=== PATIENT | female | born 1965 | race Two or more races ===

== ENCOUNTER 2023-10-10 01:44 | Inpatient (IN) | payer MEDICAID, OTHER ==
[~2023-10-10] VITALS: Ht 152.4 cm; Wt 72.6 kg
[2023-10-10 03:00] LABS: BASOPHILS % (AUTO) 0.4 % (0.0-2.0); HEMATOCRIT 35.5 % (36-46); LYMPHOCYTES # (AUTO) 1.1 K/uL (1.0-4.8); LYMPHOCYTES % (AUTO) 20.4 % (22.0-44.0); MEAN CORPUSCULAR HEMOGLOBIN 28.2 pg (26.0-34.0); MEAN CORPUSCULAR HGB CONC 33.9 G/dL (31.0-37.0); MEAN CORPUSCULAR VOLUME 83 fL (80-100); MONOCYTES # (AUTO) 0.3 K/uL (0.1-1.0); MONOCYTES % (AUTO) 5.9 % (2.0-9.0); NEUTROPHILS % (AUTO) 72.3 % (40.0-70.0); PLATELET COUNT (AUTO) 306 K/uL (150-450); RED BLOOD CELL COUNT(AUTO) 4.25 MIL/uL (4.00-5.20); RED CELL DISTRIBUTION WIDTH 13.3 % (11.5-14.5); WHITE BLOOD COUNT (AUTO) 5.6 K/uL (4.5-11.0)
[2023-10-10 03:08] LABS: ANION GAP 6 mmol/L (8-16); CALCIUM, TOTAL 9.3 mg/dL (8.8-10.5); CARBON DIOXIDE 32 mmol/L (22-29); CHLORIDE 103 mmol/L (98-107); CREATININE 0.79 mg/dL (0.60-1.30); GLOMERULAR FILTR. RATE CALC > 60 mL/min (>60); GLUCOSE,RANDOM 154 mg/dL (70-110); POTASSIUM 4.1 mmol/L (3.5-5.1); SODIUM SERUM 141 mmol/L (136-145); UREA NITROGEN, BLOOD 8 mg/dL (7-18)
[2023-10-10 03:16] LABS: ALANINE AMINOTRANSFERASE 31 U/L (12-78); ALBUMIN 3.7 g/dL (3.4-5.0); ALCOHOL, BLOOD (SERUM) < 3 mg/dL (0-10); ALKALINE PHOSPHATASE 112 U/L (46-116); ASPARTATE AMINOTRANSFERASE 22 U/L (15-37); BILIRUBIN,TOTAL 0.4 mg/dL (0.1-1.0); TOTAL PROTEIN, SERUM 7.6 g/dL (6.4-8.2)
[2023-10-10] MEDS ORDERED: HALOPERIDOL 5 MG TABLET PO PRN (03:30)
[2023-10-10] MEDS ORDERED: LORazepam 2 MG TABLET PO PRN (03:30)
[2023-10-10 03:48] LABS: COVID AG,FIA SOURCE NASAL SWAB
[2023-10-10 04:14] LABS: SARS-COV2 (COVID) ANTIGEN,FIA Negative (Negative)
[2023-10-10] MEDS: ACETAMINOPHEN 325 MG TABLET PO ONE (06:25)
[2023-10-10 07:22] LABS: APPEARANCE,URINE HAZY (CLEAR); BILIRUBIN,URINE NEGATIVE (NEGATIVE); COLOR,URINE LIGHT YELLOW (YELLOW); GLUCOSE, URINE (UA) NEGATIVE (NEGATIVE); KETONES,URINE NEGATIVE (NEGATIVE); LEUKOCYTE ESTERASE ,URINE NEGATIVE (NEGATIVE); NITRATE,URINE NEGATIVE (NEGATIVE); OCCULT BLOOD,URINE NEGATIVE (NEGATIVE); PROTEIN,URINE NEGATIVE (NEGATIVE); SPECIFIC GRAVITIY, URINE 1.014 (1.003-1.030); UROBILINOGEN,URINE <=1.0 mg/dL (<=1.0)
[2023-10-10 07:35] LABS: ALCOHOL, URINE DRUG SCREEN NEGATIVE (NEGATIVE); AMPHET/METH SCREEN,URINE NEGATIVE (NEGATIVE); BARBITURATE SCREEN, URINE NEGATIVE (NEGATIVE); BENZODIAZEPINES SCREEN,URINE NEGATIVE (NEGATIVE); CANNABINOID SCREEN,URINE NEGATIVE (NEGATIVE); COCAINE SCREEN,URINE NEGATIVE (NEGATIVE); METHADONE SCREEN, URINE NEGATIVE (NEGATIVE); OPIATE SCREEN,URINE NEGATIVE (NEGATIVE); PHENCYCLIDINE SCREEN,URINE NEGATIVE (NEGATIVE)
[2023-10-10 09:55] VITALS: BP 130/79; PULSE 75; RESP 18; TEMP 97.9; O2SAT 98
[2023-10-10] MEDS ORDERED: CloNIDine HCL 0.1 MG TABLET PO PRN (14:00)
[2023-10-10] MEDS ORDERED: ACETAMINOPHEN 325 MG TABLET PO PRN (14:00)
[2023-10-10] MEDS ORDERED: ONDANSETRON HCL 4 MG TABLET PO PRN (14:00)
[2023-10-10] MEDS ORDERED: MAGNESIUM HYDROXIDE SUSPENSION 30 ML UDCUP PO PRN (14:00)
[2023-10-10] MEDS ORDERED: GuaiFENesin/D-METHORPHAN [SUGAR-FREE] 200-20MG/10 ML SYRUP UDCUP PO PRN (14:00)
[2023-10-10] MEDS ORDERED: IBUPROFEN 400 MG TABLET PO PRN (14:00)
[2023-10-10] MEDS ORDERED: ALBUTEROL SULFATE HFA 90 MCG/PUFF 8 GM INHALER IH PRN (14:00)
[2023-10-10] MEDS ORDERED: PETROLATUM,WHITE 28 GM JELLY TP PRN (14:00)
[2023-10-10] MEDS ORDERED: LOPERAMIDE HCL 2 MG CAPSULE PO PRN (14:00)
[2023-10-10] MEDS ORDERED: DOCUSATE SODIUM 100 MG CAPSULE PO PRN (14:00)
[2023-10-10] MEDS ORDERED: NICOTINE 14 MG/24 HOUR PATCH TD PRN (14:00)
[2023-10-10 18:22] VITALS: BP 162/87; PULSE 87; RESP 20; TEMP 97.3
[2023-10-10 22:43] VITALS: BP 145/87; PULSE 72; RESP 18; TEMP 97.7; O2SAT 98
[2023-10-11 08:14] LABS: HEMOGLOBIN A1C 5.9 % (3.8-5.6)
[2023-10-11 08:31] VITALS: BP 138/75; PULSE 73; RESP 16; TEMP 97.6; O2SAT 98
[2023-10-11 08:43] LABS: CHOL/HDL RATIO 4.4 (3.9-5.7); THYROID STIMULATING HORMONE 3.3 uIU/mL (0.36-3.74)
[2023-10-11] MEDS: ESCITALOPRAM OXALATE 10 MG TABLET PO SCH (16:09)
[2023-10-11] MEDS: BENZONATATE 100 MG CAPSULE PO SCH (16:10)
[2023-10-11 23:45] VITALS: BP 140/89; PULSE 71; RESP 16; TEMP 97.1; O2SAT 97
[2023-10-11] MEDS: ZOLPIDEM TARTRATE 10 MG TABLET PO PRN (23:45)
[2023-10-11] MEDS: MAG HYDROX/ALUMINUM HYD/SIMETH ES 30 ML SUSPENSION UDCUP PO PRN (23:45)
[2023-10-12 08:27] VITALS: BP 141/78; PULSE 79; RESP 16; TEMP 97.8; O2SAT 97
[2023-10-12] MEDS: LOSARTAN POTASSIUM 25 MG TABLET PO SCH (08:44)
[2023-10-12 21:17] VITALS: BP 145/85; PULSE 74; RESP 18; TEMP 98.1
[2023-10-13] MEDS ORDERED: ESCI-8 PO (08:42)
[2023-10-13] MEDS ORDERED: BENZ100C68 PO (08:42)
[2023-10-13 11:36] VITALS: BP 138/78; PULSE 81; RESP 17; TEMP 98.2; O2SAT 97
[2023-10-13] MEDS ORDERED: LOSA-381 PO (13:24)
[2023-10-13] MEDS ORDERED: BENZ-227 PO (13:25)
== END 2023-10-13 10:30 | disposition home or self-care (01) | DRG 751 ==
LOC: EMS 01:46 → B3A 03:36
PROVIDERS: ADMIT Psychiatry & Neurology Psychiatry; ATTEND Psychiatry & Neurology Psychiatry
DX: F33.3 Major depressive disorder, recurrent, severe with psychotic symptoms (principal); R45.851 Suicidal ideations; I10 Essential (primary) hypertension; Z20.822 Contact with and (suspected) exposure to COVID-19; D64.9 Anemia, unspecified; E11.65 Type 2 diabetes mellitus with hyperglycemia; Z90.49 Acquired absence of other specified parts of digestive tract; Z90.710 Acquired absence of both cervix and uterus; Z79.899 Other long term (current) drug therapy; Z81.8 Family history of other mental and behavioral disorders
CPT/HCPCS: 80053; 80061; 80307; 81003; 83036; 84443; 85025; G0480

== ENCOUNTER 2023-10-11 20:52 | Emergency (ER) | payer MEDICAID, OTHER ==
[~2023-10-11] VITALS: Ht 152.4 cm; Wt 70.0 kg
[2023-10-11 20:56] VITALS: TEMP 98.2
[2023-10-11 21:00] VITALS: BP 153/87; PULSE 72; RESP 16
[2023-10-11] MEDS: LORazepam 2 MG TABLET PO ONE (21:30)
[2023-10-11] MEDS: ACETAMINOPHEN 500 MG TABLET PO ONE (21:30)
[2023-10-11] MEDS: IBUPROFEN 600 MG TABLET PO ONE (21:35)
[2023-10-11] MEDS: HALOPERIDOL 5 MG TABLET PO ONE (21:36)
== END 2023-10-11 22:50 | disposition home or self-care (01) ==
LOC: EMS 20:53
DX: F43.9 Reaction to severe stress, unspecified (principal); F41.9 Anxiety disorder, unspecified; F32.9 Major depressive disorder, single episode, unspecified; D64.9 Anemia, unspecified; I10 Essential (primary) hypertension; Z90.49 Acquired absence of other specified parts of digestive tract; Z90.710 Acquired absence of both cervix and uterus; Z98.890 Other specified postprocedural states
CPT/HCPCS: 99284; Z7502; Z7610